=== PATIENT | female | born 1935 | race African-American/Black ===

== ENCOUNTER 2020-02-24 19:58 | Emergency (ER) | payer MEDICARE, MEDICAID ==
[2020-02-24] MEDS ORDERED: Metoprolol Tartrate 50 MG TAB ONE (21:15)
[2020-02-24 21:46] LABS: PTT 34.3 sec (22.9-36.1); Prothrombin Time 13.5 sec (12.0-14.7)
[2020-02-24 21:55] LABS: Hemoglobin 10.5 g/dL (12.0-16.0); Mean Corpuscular HGB CONC 30.9 g/dL (32.0-36.0); Mean Corpuscular Volume 100.6 fL (78.0-98.0); Mean Platelet Volume 7.7 fL (7.4-10.4); Platelet Count 204 thou/uL (130-400); RBC Distribution Width 14.9 % (11.5-14.5); Red Blood Cell (RBC) Count 3.38 mill/uL (4.20-5.40); White Blood Cell (WBC) Count 6.1 thou/uL (4.8-10.8)
[2020-02-24 21:56] LABS: ALT (SGPT) 12 U/L (8-55); AST (SGOT) 24 U/L (5-34); Albumin 3.6 g/dL (3.4-4.8); Alkaline Phosphatase 73 U/L (40-110); Anion Gap 16 mmol/L (10-20); BUN (Urea Nitrogen) 9 mg/dL (9.8-20.1); Bilirubin, Total 0.6 mg/dL (0.2-1.2); Calc. Creatinine Clearance 0 mL/min (70-130); Calcium 8.8 mg/dL (7.8-10.44); Carbon Dioxide 27 mmol/L (23-31); Chloride 98 mmol/L (98-107); Globulin 3.7 g/dL (2.4-3.5); Glucose 100 mg/dL (83-110); Protein, Total 7.3 g/dL (6.0-8.3); Sodium 138 mmol/L (136-145)
[2020-02-24 21:57] LABS: Band 1 % (5-11); Neutrophil 65 % (42-75)
[2020-02-24 21:58] LABS: Eosinophils 6 % (0-10); Lymphocytes 23 % (21-51); Manual Diff?? YES; Monocytes 5 % (0-10)
[2020-02-24 22:02] LABS: MDiff Complete? YES
[2020-02-24 22:13] LABS: Potassium 2.9 mmol/L (3.5-5.1)
[2020-02-24] MEDS ORDERED: Potassium Chloride 20 MEQ TAB ONE (22:20)
[2020-02-24 22:45] LABS: CKMB 0.9 ng/mL (0-6.6)
--- NOTE | 2020-02-25 07:14 | CT ---
CT Brain WO Con History: Elevated blood pressure Comparison: None. Findings: Moderate microvascular ischemic changes. No acute hemorrhage or infarct. No midline shift o r mass effect. Ventricular size and extra-axial CSF spaces are normal. Mucosal thickening right anterior ethmoid sinus. Mastoids are clear. Calvarium is intact. Impression: No acute intracranial abnormality.
== END 2020-02-24 22:40 | disposition short-term general hospital (02) ==
LOC: MADERS 19:58
DX: G45.9 Transient cerebral ischemic attack, unspecified (principal); E87.6 Hypokalemia; I13.0 Hypertensive heart and chronic kidney disease with heart failure and stage 1 through stage 4 chronic kidney disease, or unspecified chronic kidney disease; I50.9 Heart failure, unspecified; E78.5 Hyperlipidemia, unspecified; N18.9 Chronic kidney disease, unspecified; Z87.891 Personal history of nicotine dependence; E03.9 Hypothyroidism, unspecified; Z79.899 Other long term (current) drug therapy
CPT/HCPCS: 70450; 80053; 82553; 84484; 85025; 85610; 85730; 93005

== ENCOUNTER 2020-03-26 16:15 | Emergency (ER) | payer MEDICARE, MEDICAID ==
[2020-03-27 21:21] LABS: SARS-CoV-2 MS2 Positive; SARS-CoV-2 N Gene Negative; SARS-CoV-2 S Gene Negative; SARS-CoV-2 by NAA Not Detected (NotDetected); SARS-CoV-2 orf1ab Negative
== END 2020-03-26 16:46 | disposition home or self-care (01) ==
LOC: MADERS 16:15
DX: Z20.822 Contact with and (suspected) exposure to COVID-19 (principal); I11.0 Hypertensive heart disease with heart failure; I50.9 Heart failure, unspecified; E03.9 Hypothyroidism, unspecified; E78.5 Hyperlipidemia, unspecified; Z86.73 Personal history of transient ischemic attack (TIA), and cerebral infarction without residual deficits; Z87.891 Personal history of nicotine dependence
CPT/HCPCS: 87635; U0003

== ENCOUNTER 2020-04-09 11:53 | Emergency (ER) | payer MEDICARE, MEDICAID ==
[2020-04-10 17:20] LABS: SARS-CoV-2 PCR by NAA Not Detected (NotDetected)
== END 2020-04-09 12:11 | disposition home or self-care (01) ==
LOC: MADERS 11:53
DX: Z20.822 Contact with and (suspected) exposure to COVID-19 (principal); E03.9 Hypothyroidism, unspecified; E78.5 Hyperlipidemia, unspecified; I11.0 Hypertensive heart disease with heart failure; I50.9 Heart failure, unspecified; Z86.73 Personal history of transient ischemic attack (TIA), and cerebral infarction without residual deficits; Z87.891 Personal history of nicotine dependence; Z79.82 Long term (current) use of aspirin; Z79.899 Other long term (current) drug therapy
CPT/HCPCS: 87635; 99283; U0003; U0005

== ENCOUNTER 2020-05-21 14:46 | Emergency (ER) | payer MEDICARE, MEDICAID ==
[2020-05-22 21:46] LABS: SARS-CoV-2 PCR by NAA Not Detected (NotDetected)
== END 2020-05-21 15:04 | disposition home or self-care (01) ==
LOC: MADERS 14:46
DX: Z20.822 Contact with and (suspected) exposure to COVID-19 (principal); E03.9 Hypothyroidism, unspecified; E78.5 Hyperlipidemia, unspecified; I13.2 Hypertensive heart and chronic kidney disease with heart failure and with stage 5 chronic kidney disease, or end stage renal disease; I50.9 Heart failure, unspecified; N18.6 End stage renal disease; Z87.891 Personal history of nicotine dependence; Z79.01 Long term (current) use of anticoagulants; Z79.899 Other long term (current) drug therapy
CPT/HCPCS: U0003; U0005; 87635; 99281

== ENCOUNTER 2023-03-23 18:57 | Emergency (ER) | payer MEDICAID, MEDICARE ==
[2023-03-23] MEDS ORDERED: dilTIAZem 25 MG/5 ML VIAL ONE (19:47)
[2023-03-23 19:52] LABS: #Basophils 0.1 thou/uL (0.0-0.2); #Lymphocytes 1.9 thou/uL (1.20-3.40); #Monocytes 0.5 thou/uL (0.11-0.59); #Neutrophils 3.6 thou/uL (1.40-6.50); %Basophils 1.9 % (0.0-1.0); %Eosinophils 0.8 % (0.0-10.0); %Lymphocytes 31.3 % (21.0-51.0); Anisocytosis SLIGHT = 6-15 cells (100X) (0-5/hpf); Burr Cells MODERATE= 6-15 cells (100X) (0-1/hpf); Hematocrit 45.9 % (36.0-47.0); MDiff Complete? YES; Macrocytosis MODERATE=16-30 cells (100X) (0-5/hpf); Mean Corpuscular HGB CONC 28.3 g/dL (32.0-36.0); Mean Corpuscular Hemoglobin 31.8 pg (27.0-31.0); Mean Corpuscular Volume 112.5 fl (78.0-98.0); Mean Platelet Volume 8.4 fL (7.4-10.4); Ovalocytes SLIGHT = 2-5 cells (100X) (0-1/hpf); Platelet Adequacy Comment Appears Adequate; Platelet Count 134 10x3/uL (130-400); Polychromasia SLIGHT = 2-3 cells (100X) (0-2/hpf); Red Blood Cell (RBC) Count 4.08 mill/uL (4.20-5.40); White Blood Cell (WBC) Count 6.2 10x3/uL (4.8-10.8)
[2023-03-23 19:53] LABS: Phosphorus 4.1 mg/dL (2.3-4.7)
[2023-03-23 19:55] LABS: Troponin I 0.071 ng/mL (< 0.028)
[2023-03-23 19:57] LABS: ALT (SGPT) Less than 7 U/L (8-55); Albumin 3.1 g/dL (3.4-4.8); Alkaline Phosphatase 160 U/L (40-110); Anion Gap 21 mmol/L (10-20); BUN (Urea Nitrogen) 15 mg/dL (9.8-20.1); Bilirubin, Total 1.3 mg/dL (0.2-1.2); Calc. Creatinine Clearance 0 mL/min (70-130); Calcium 8.5 mg/dL (7.8-10.44); Carbon Dioxide 20 mmol/L (23-31); Chloride 102 mmol/L (98-107); Estimated GFR 8; Globulin 3.5 g/dL (2.4-3.5); Glucose 102 mg/dL (83-110); Lipase 59 U/L (8-78); Potassium 4.4 mmol/L (3.5-5.1); Protein, Total 6.6 g/dL (5.8-8.1); Sodium 139 mmol/L (136-145)
[2023-03-23 19:59] LABS: AST (SGOT) 26 U/L (5-34); Magnesium 1.9 mg/dL (1.6-2.6)
[2023-03-23] MEDS ORDERED: Aspirin Chewable 81 MG TAB ONE (20:39)
[2023-03-23 21:58] LABS: Lactic Acid 2.2 mmol/L (0.5-2.2)
== END 2023-03-23 22:53 | disposition short-term general hospital (02) ==
LOC: MADERS 18:57
DX: I21.4 Non-ST elevation (NSTEMI) myocardial infarction (principal); I48.19 Other persistent atrial fibrillation; J81.1 Chronic pulmonary edema; E03.9 Hypothyroidism, unspecified; I13.2 Hypertensive heart and chronic kidney disease with heart failure and with stage 5 chronic kidney disease, or end stage renal disease; N18.6 End stage renal disease; E78.5 Hyperlipidemia, unspecified; Z87.891 Personal history of nicotine dependence; Z79.899 Other long term (current) drug therapy; Z79.01 Long term (current) use of anticoagulants
CPT/HCPCS: 71045; 80053; 83605; 83690; 83735; 83880; 84100; 84484; 85025; 93005; 96374